=== PATIENT | female | born 1960 | race African-American/Black ===

== ENCOUNTER 2018-03-20 07:03 | Observation (INO) | payer OTHER ==
[2018-03-20] MEDS: SOD CHLORIDE 0.9% 1,000 ML IV ×2 (06:30→19:50)
[~2018-03-20 07:03] MED LIST: ACETAMINOPHEN 1000 MG/100 ML IVPB; CEFAZOLIN 1 GM INJ; EPHEDrine SULFATE 50 MG/5 ML SYG
[2018-03-20 10:30] LABS: ADD MAN DIFF? NO
[2018-03-20 10:52] LABS: ALANINE AMINOTRANSFERASE 21 IU/L (13-69); ALBUMIN 4.7 g/dl (3.3-4.9); ALBUMIN/GLOBULIN RATIO 1.56; ALKALINE PHOSPHATASE 85 IU/L (42-121); ANION GAP 13 (5-13); ASPARTATE AMINO TRANSFERASE 24 IU/L (15-46); BILIRUBIN,INDIRECT 0.4 mg/dl (0-1.1); BILIRUBIN,TOTAL 0.4 mg/dl (0.2-1.3); BLOOD UREA NITROGEN 16 mg/dl (7-20); CALCIUM 9.8 mg/dl (8.4-10.2); CARBON DIOXIDE 23 mmol/L (21-31); CHLORIDE 107 mmol/L (97-110); CREATININE 0.82 mg/dl (0.44-1.00); Estimated GFR > 60 mL/min (>60); GLUCOSE 124 mg/dl (70-220); POTASSIUM 3.5 mmol/L (3.5-5.1); SODIUM 143 mmol/L (135-144); TOTAL PROTEIN 7.7 g/dl (6.1-8.1)
[2018-03-20] MEDS ORDERED: BUPIVACAINE 0.25%/EPI (SDV) 30 ML INJ (10:53)
[2018-03-20] MEDS ORDERED: BUPIVACAINE 0.25% (MPF) 30 ML INJ (10:53)
[2018-03-20] MEDS ORDERED: MIDAZOLAM 1 MG/ML 2 ML INJ (11:05)
[2018-03-20] MEDS ORDERED: PROPOFOL 20 ML ×2 (11:06→11:23)
[2018-03-20] MEDS ORDERED: LIDOCAINE 2% (SDV) 5 ML INJ (11:06)
[2018-03-20] MEDS ORDERED: FENTAnyl 50 MCG/ML VIAL (11:06)
[2018-03-20] MEDS ORDERED: DEXAMETHASONE 4 MG/ML 1 ML INJ (11:22)
[2018-03-20] MEDS ORDERED: ONDANSETRON 4 MG INJ (11:23)
[2018-03-20] MEDS ORDERED: FAMOTIDINE 20 MG INJ (11:23)
[2018-03-20] MEDS ORDERED: ONDANSETRON 4 MG INJ IV ×2 (11:30→13:00)
[2018-03-20] MEDS ORDERED: FENTAnyl 50 MCG/ML VIAL IV (11:30)
[2018-03-20] MEDS ORDERED: HYDROmorphONE 1 MG/5 ML IV SYRINGE IV (11:30)
[2018-03-20] MEDS ORDERED: MEPERIDINE 25 MG INJ IV (11:30)
[2018-03-20] MEDS ORDERED: PROCHLORPERAZINE 10 MG INJ IV (11:30)
[2018-03-20] MEDS ORDERED: OXYCODONE/ACETAMINOPHEN (5/325) TAB PO (11:30)
[2018-03-20] MEDS: POLYMYXIN/BACITRACIN 1L IRRIG IRR (11:37)
[2018-03-20] MEDS ORDERED: HYDROmorphONE 2 MG/ML SYG (11:50)
[2018-03-20] MEDS ORDERED: KETOROLAC 30 MG INJ (12:35)
[2018-03-20] MEDS ORDERED: ACETAMINOPHEN 325 MG TAB PO (13:00)
[2018-03-20] MEDS ORDERED: HYDROmorphONE 1 MG/ML SYG SC (13:00)
[2018-03-20] MEDS ORDERED: oxyCODONE 5 MG TAB PO (13:30)
[2018-03-20] MEDS ORDERED: EPHEDrine SULFATE 50 MG/5 ML SYG IV (13:30)
[2018-03-20] MEDS: DIPHENHYDRAMINE 50 MG INJ IV (14:00)
[2018-03-20] MEDS: CEFAZOLIN 1 GM/50 ML (PMX) 50 ML IVPB (14:07)
[2018-03-20 14:18] LABS: BASOPHILS % 0.3 % (0.0-2.0); EOSINOPHILS % 0.5 % (0.0-7.0); HEMATOCRIT 35.9 % (37.0-47.0); HEMOGLOBIN 12.1 g/dl (12.0-16.0); LYMPHOCYTES # 3.7 10^3/ul (0.8-2.9); LYMPHOCYTES % 42.5 % (15.0-51.0); MEAN CORPUSCULAR HEMOGLOBIN 27.6 pg (29.0-33.0); MEAN CORPUSCULAR HGB CONC 33.7 g/dl (32.0-37.0); MEAN PLATELET VOLUME 10.5 fl (7.4-10.4); MONOCYTE # 0.4 10^3/ul (0.3-0.9); NEUTROPHIL # 4.5 10^3/ul (1.6-7.5); NEUTROPHILS % 51.6 % (39.0-77.0); PLATELET COUNT 295 10^3/UL (140-415); RED BLOOD COUNT 4.38 10^6/ul (4.20-5.40); RED CELL DISTRIBUTION WIDTH 13.3 % (11.5-14.5)
[2018-03-20 14:18] LABS: WHITE BLOOD COUNT 8.6 10^3/ul (4.8-10.8)
[2018-03-20] MEDS: D5W-0.45 NACL + KCL 20 MEQ 1,000 ML IV (14:22)
[2018-03-20 14:33] LABS: INR 0.93; PROTIME 12.6 Sec (11.9-14.9)
[2018-03-20 14:34] LABS: PARTIAL THROMBOPLASTIN TIME 31.7 Sec (23.0-35.0)
[2018-03-20] MEDS: HYDROCODONE/APAP (5/325) TAB PO (20:33)
[2018-03-20] MEDS: traZODone 100 MG TAB PO (21:32)
[2018-03-21] MEDS: D5W-0.45 NACL + KCL 20 MEQ 1,000 ML IV (00:41)
[2018-03-21] MEDS: HYDROCODONE/APAP (5/325) TAB PO ×2 (04:20→09:22)
== END 2018-03-21 15:55 | disposition home or self-care (01) ==
LOC: SDS 07:03 → REC 12:51 → MS1 14:33
DX: C50.412 Malignant neoplasm of upper-outer quadrant of left female breast (principal); Z17.0 Estrogen receptor positive status [ER+]
CPT/HCPCS: 19301; 71045; 80053; 85025; 85610; 85730; 88307; 93005; 99217